=== PATIENT | male | born 1995 | race Caucasian/White ===

== ENCOUNTER 2021-01-31 10:19 | Emergency (ER) | payer SELFPAY ==
[2021-01-31] MEDS ORDERED: traMADol 50 MG Tab PO STA (10:43)
[2021-01-31] MEDS ORDERED: Acetaminophen 500 MG Tab PO STA (10:43)
--- NOTE | 2021-01-31 12:13 | EDM.PDOC ---
ED HPI GENERAL MEDICAL PROBLEM - General Chief Complaint: General Stated Complaint: TESTICLE PAIN Time Seen by Provider: 01/31/21 10:25 Source of Information: Reports: Patient History Limitations: Reports: No Limitations - History of Present Illness INITIAL COMMENTS - FREE TEXT/NARRATIVE: Patient presented to the ED because of bilateral testicular pain which started 3 days ago. He said it all started when he was unable to ejaculate when he was having sex. There is no UTI s/s orpenile discharge but has a h/o GALILEA-gonorrhea. Scrotum Pain Score (Numeric/FACES): 6 - Related Data Allergies Allergy/AdvReac Type Severity Reaction Status Date / Time aspirin Allergy Cannot Verified 01/31/21 10:34 Remember Home Meds: Home Meds Doxycycline [Vibramycin] 100 mg PO BID #20 cap 01/31/21 [Rx] traMADol [Ultram] 100 mg PO Q8H PRN #15 tab 01/31/21 [Rx] Past Medical History - Past Health History Medical/Surgical History: Denies Medical/Surgical History Social & Family History - Family History Family Medical History: No Pertinent Family History - Tobacco Use Tobacco Use Status *Q: Current Every Day Tobacco User Years of Tobacco use: 10 Packs/Tins Daily: 1 - Caffeine Use Caffeine Use: Reports: None - Recreational Drug Use Recreational Drug Use: Yes Recreational Drug Type: Reports: Marijuana/Hashish, Methamphetamine Recreational Drug Use Frequency: Socially ED ROS GENERAL - Review of Systems Review Of Systems: See Below Constitutional: Reports: No Symptoms HEENT: Reports: No Symptoms Respiratory: Reports: No Symptoms Cardiovascular: Reports: No Symptoms Endocrine: Reports: No Symptoms GI/Abdominal: Reports: No Symptoms : Reports: Other (syl;ateral testicular pain) Skin: Reports: No Symptoms Neurological: Reports: No Symptoms Psychiatric: Reports: No Symptoms Hematologic/Lymphatic: Reports: No Symptoms ED EXAM, GENERAL - Physical Exam Exam: See Below Exam Limited By: No Limitations General Appearance: Alert, No Apparent Distress Ears: Normal External Exam, Normal Canal, Normal TMs Nose: Normal Inspection, Normal Mucosa, No Blood Throat/Mouth: Normal Inspection, Normal Lips, Normal Teeth Head: Atraumatic, Normocephalic Neck: Normal Inspection, Supple, Non-Tender, Full Range of Motion Respiratory/Chest: No Respiratory Distress, Lungs Clear, Normal Breath Sounds, No Accessory Muscle Use, Chest Non-Tender Cardiovascular: Normal Peripheral Pulses, Regular Rate, Rhythm, No Edema, No Gallop, No JVD, No Murmur, No Rub GI/Abdominal: Normal Bowel Sounds, Soft, Non-Tender, No Organomegaly, No Distention, No Abnormal Bruit (Male) Exam: Scrotum Tenderness (L), Testicular Tenderness (L), Testicular Tenderness (R) Back Exam: Normal Inspection, Full Range of Motion Extremities: Normal Inspection, Normal Range of Motion, Non-Tender, No Pedal Edema, Normal Capillary Refill Neurological: Alert, Oriented, CN II-XII Intact Course - Vital Signs Text/Narrative:: Lab result was reviewed and discussed with patient Testicular US-negative UA-G/C-pending Tramadol 100 mg PO x1 Tylenol 1000 mg PO x1 Last Recorded V/S: Last Vital Signs Temp 37.1 C 01/31/21 10:19 Pulse 88 01/31/21 12:20 Resp 20 01/31/21 12:20 BP 138/78 01/31/21 12:20 Pulse Ox 98 01/31/21 12:20 - Orders/Labs/Meds Orders: Active Orders 24 hr Category Date Time Status CHLAMYDIA/GC AMPLIFICATION Routine Lab 01/31/21 10:49 Received Labs: Laboratory Tests 01/31/21 Range/Units 10:49 Urine Color Yellow (YELLOW) Urine Appearance Slightly cloudy (CLEAR) Urine pH 7.0 H (5.0-6.5) Ur Specific [place] 1.010 (1.010-1.025) Urine Protein Negative (NEGATIVE) mg/dL Urine Glucose (UA) Normal (NORMAL) mg/dL Urine Ketones Negative (NEGATIVE) mg/dL Urine Occult Blood Negative (NEGATIVE) Urine Nitrite Negative (NEGATIVE) Urine Bilirubin Negative (NEGATIVE) Urine Urobilinogen Normal (NEGATIVE) mg/dL Ur Leukocyte Esterase Negative (NEGATIVE) Urine WBC 0-5 (0-5) Ur Squamous Epith Cells Few H (NS,R,O) Amorphous Sediment Few Urine Bacteria Many H (NS) Meds: Medications Discontinued Medications Generic Name Dose Route Start Last Admin Trade Name Freq PRN Reason Stop Dose Admin Acetaminophen 1,000 mg 01/31/21 10:43 01/31/21 11:09 Acetaminophen 500 Mg Tab PO 01/31/21 10:44 1,000 mg NOW STA Administration Tramadol HCl 100 mg 01/31/21 10:43 01/31/21 11:06 Tramadol 50 Mg Tab PO 01/31/21 10:44 100 mg NOW STA Administration Departure - Departure Time of Disposition: 12:15 Disposition: Home, Self-Care 01 Condition: Good Clinical Impression: Epididymitis - Discharge Information Prescriptions: traMADol [Ultram] 100 mg PO Q8H PRN #15 tab PRN Reason: Pain Doxycycline [Vibramycin] 100 mg PO BID #20 cap Instructions: Epididymitis Referrals: PCP,None [Primary Care Provider] - Forms: ED Department Discharge Additional Instructions: Please read discharge instructions on epididymitis Take tramadol 100mg with tylenol 1000 mg every 8 hours as needed for pain Doxycycline 100 mg twice daily for 10 days Follow up as needed Sepsis Event Note (ED) - Evaluation Sepsis Screening Result: No Definite Risk - My Orders Last 24 Hours: My Active Orders 01/31/21 10:49 CHLAMYDIA/GC AMPLIFICATION Routine - Assessment/Plan Last 24 Hours: My Active Orders 01/31/21 10:49 CHLAMYDIA/GC AMPLIFICATION Routine
--- NOTE | 2021-01-31 12:46 | US ---
ULTRASOUND SCROTUM AND CONTENTS INDICATION: Bilateral testicular pain. FINDINGS: Utilizing 2D realtime and color flow imaging, examination of the scrotum and contents was obtained, 01/31/21 - no comparison. Right Testicle: 3.9 cm. 2.9 cm. 2.3 cm. Left Testicle: 3.9 cm. 2.6 cm. 1.9 cm. No evidence of mass lesions, microlithiasis or abnormal blood flow was identified bilaterally. The epididymides were essentially unremarkable. There was noted a varicocele of the left epididymis of moderate size. No hydroceles were seen. IMPRESSION: Varicocele on the left, moderate in size. Report was called to Dr. Bingham at 1147 hours. [facility]
[2021-02-02 10:11] LABS: CHLAMYDIA TRACHOMATIS, NAA Negative (Negative); NEISSERIA GONORRHOEAE, NAA Negative (Negative)
== END 2021-01-31 12:20 | disposition home or self-care (01) ==
LOC: FB.ED 10:19
DX: N45.1 Epididymitis (principal); Z72.0 Tobacco use; Z88.8 Allergy status to other drugs, medicaments and biological substances
CPT/HCPCS: 76870; 81001; 87491; 87591; 99284; A9270